=== PATIENT | male | born 1970 | race Caucasian/White ===

== ENCOUNTER 2020-04-09 21:05 | Emergency (ER) | payer OTHER ==
[~2020-04-09 21:05] MED LIST: IBUPROFEN800 MG PO; SILVADENE CREAM20 GM TOP
[2020-04-09 22:38] LABS: BUN/CREATININE RATIO 27 (0-10)
[2020-04-09 22:40] LABS: HEMOGLOBIN 15.6 gm/dl (14.0-17.5); RED BLOOD COUNT 4.96 M/UL (4.20-5.50); WHITE BLOOD COUNT 12.4 K/UL (4.5-11.0)
[2020-04-09] MEDS ORDERED: LODINE CAP 300300 MG PO (23:22)
[2020-04-09] MEDS ORDERED: KEFLEX CAP 500500 MG PO (23:22)
== END 2020-04-10 02:40 | disposition home or self-care (01) ==
LOC: ER1 21:05
PROVIDERS: Family Medicine
DX: S41.111A Laceration without foreign body of right upper arm, initial encounter (principal); F17.210 Nicotine dependence, cigarettes, uncomplicated; Z23 Encounter for immunization; Z86.59 Personal history of other mental and behavioral disorders; W13.0XXA Fall from, out of or through balcony, initial encounter
CPT/HCPCS: 12001; 73060; 73080; 80053; 85025; 85610; 90471; 90715; 99283

== ENCOUNTER 2020-07-08 21:23 | Emergency (ER) | payer OTHER ==
[~2020-07-08 21:23] MED LIST changes: +KEFLEX CAP 500500 MG PO; +LODINE CAP 300300 MG PO
[2020-07-08 22:37] LABS: HEMOGLOBIN 15.9 gm/dl (14.0-17.5); RED BLOOD COUNT 5.22 M/UL (4.20-5.50); WHITE BLOOD COUNT 12.4 K/UL (4.5-11.0)
[2020-07-08 23:13] LABS: BUN/CREATININE RATIO 28 (0-10)
[2020-07-09] MEDS ORDERED: BACTROBAN OINT22 GM EXT (00:01)
[2020-07-09] MEDS ORDERED: CLEOCIN HCL300 MG PO (00:01)
== END 2020-07-09 00:17 | disposition home or self-care (01) ==
LOC: ER1 21:23
PROVIDERS: Physician Assistant Medical
DX: L03.114 Cellulitis of left upper limb (principal); L03.113 Cellulitis of right upper limb; F19.10 Other psychoactive substance abuse, uncomplicated
CPT/HCPCS: 80053; 83605; 85025; 87040; 99283